=== PATIENT | female | born 1995 | race African-American/Black ===

== ENCOUNTER 2016-12-10 15:13 | Emergency (ER) | payer MEDICAID ==
[~2016-12-10] VITALS: Ht 154.9 cm; Wt 64.5 kg
[~2016-12-10 15:13] MED LIST: PRENCAP61 PO
[2016-12-10 15:25] VITALS: BP 124/77
== END 2016-12-10 17:49 | disposition home or self-care (01) ==
LOC: ER 15:15
DX: B86 Scabies (principal)

== ENCOUNTER 2017-02-04 17:06 | Emergency (ER) | payer MEDICAID ==
[~2017-02-04] VITALS: Ht 157.5 cm; Wt 65.8 kg
[2017-02-04 17:22] VITALS: BP 135/88
== END 2017-02-04 17:58 | disposition home or self-care (01) ==
LOC: ER 17:09
DX: B86 Scabies (principal)

== ENCOUNTER 2018-12-24 08:55 | Emergency (ER) | payer MEDICAID ==
[~2018-12-24] VITALS: Ht 162.6 cm; Wt 77.1 kg
[2018-12-24] MEDS ORDERED: AMMONIA 0.33 ML INHALANT IN ONE (09:03)
[2018-12-24 09:53] LABS: Basophils # (auto) 0 uL; Basophils % (auto) 0.2 % (0.0-2.0); Eosinophils # (auto) 0 uL; Eosinophils % (auto) 0.1 % (0.0-7.0); Hematocrit 40.7 % (36.0-46.0); Hemoglobin 13.9 g/dL (12.2-16.2); Lymphocytes # (auto) 1.1 uL; Lymphocytes % (auto) 10.3 % (10.0-50.0); Mean Corpuscular Hemoglobin 31.5 pg (28.0-32.0); Mean Corpuscular Hgb Conc. 34.1 g/dL (32.0-36.0); Mean Corpuscular Volume 92.4 fL (80.0-100.0); Monocytes # (auto) 0.7 uL; Monocytes % (auto) 6.2 % (0.0-12.0); Neutrophils # (auto) 8.8 uL; Neutrophils % (auto) 83.2 % (37.0-80.0); Platelet Count (auto) 371 10^3/uL (140-450); Red Cell Distribution Width 13.8 % (11.8-14.3); White Blood Cell 10.6 10^3/uL (4.4-10.8)
[2018-12-24] MEDS ORDERED: SODIUM CHLORIDE 0.9% 1,000 ML IV ONE (10:00)
[2018-12-24 10:11] LABS: BUN/Creatinine Ratio 9.1; Calcium 8.6 mg/dL (8.5-10.1)
[2018-12-24 10:14] LABS: Bilirubin, Total 0.2 mg/dL (0.2-1.0); Total Protein 8.7 g/dL (6.4-8.2)
[2018-12-24 11:24] LABS: Salicylate 1.8 mg/dL (2.8-20.0)
[2018-12-24 11:50] LABS: Acetaminophen < 2.0 ug/mL (10-30)
[2018-12-24 14:55] LABS: Amphetamine Screen, Urine NEGATIVE (NEGATIVE); Barbiturate Scree,Urine NEGATIVE (NEGATIVE); Benzodiazephine Screen, Urine NEGATIVE (NEGATIVE); Cannabinoid Screen, Urine NEGATIVE (NEGATIVE); Cocaine Screen, Urine NEGATIVE (NEGATIVE); Opiate Scree,Urine NEGATIVE (NEGATIVE); Phencyclidine Screen, Urine NEGATIVE (NEGATIVE)
[2018-12-24 15:00] VITALS: BP 122/71
[2018-12-24 15:15] LABS: Urine Bacteria NONE SEEN /hpf (None Seen); Urine Blood 1+ /uL (Negative); Urine Mucus FEW (None Seen); Urine Specific Gravity 1.021 (1.001-1.035); Urine WBC 5 /hpf (0 - 5)
== END 2018-12-24 16:56 | disposition home or self-care (01) ==
LOC: EDBD 08:55 → ER 08:57 → EEVIPCON 08:57 → ER 16:56
DX: R45.851 Suicidal ideations (principal); F41.9 Anxiety disorder, unspecified; N39.0 Urinary tract infection, site not specified
CPT/HCPCS: 36415; 80053; 80307; 80320; 80329; 81001; 81025; 85025; 93005; 96360; 99284; J7030

== ENCOUNTER 2022-09-29 23:24 | Emergency (ER) | payer MEDICAID ==
[~2022-09-29] VITALS: Ht 160 cm; Wt 75.0 kg
[2022-09-29 23:35] VITALS: BP 137/82
[2022-09-30] MEDS ORDERED: SODIUM CHLORIDE 0.9% 1,000 ML IV ONE (00:15)
== END 2022-09-30 03:12 | disposition left against medical advice (07) ==
LOC: ER 23:25
DX: R00.2 Palpitations (principal); Z53.21 Procedure and treatment not carried out due to patient leaving prior to being seen by health care provider
CPT/HCPCS: 71045; 93005